=== PATIENT | female | born 1950 | race Caucasian/White ===

== ENCOUNTER → 2023-08-17 06:30 | Day surgery (SDC) | payer MEDICARE, OTHER, SELFPAY | LOC: GI 06:30 | PROVIDERS: ATTENDING PHYSICIAN Internal Medicine | DX: Z12.11 Encounter for screening for malignant neoplasm of colon (principal); K63.89 Other specified diseases of intestine; K57.30 Diverticulosis of large intestine without perforation or abscess without bleeding; Z86.010 Personal history of colon polyps | CPT/HCPCS: 45380; 88305 ==

== ENCOUNTER → 2023-10-26 16:14 | Outpatient (REF) | payer MEDICARE, OTHER, SELFPAY | LOC: RAD 16:14 | PROVIDERS: ATTENDING PHYSICIAN Internal Medicine | DX: M54.31 Sciatica, right side (principal) | CPT/HCPCS: 72100; 73502 ==

== ENCOUNTER → 2024-04-28 09:53 | Outpatient (REF) | payer MEDICARE, OTHER, SELFPAY | LOC: HWWDC 09:53 | PROVIDERS: ATTENDING PHYSICIAN Obstetrics & Gynecology Gynecology; FAMILY PHYSICIAN Internal Medicine | DX: M85.89 Other specified disorders of bone density and structure, multiple sites (principal); Z12.31 Encounter for screening mammogram for malignant neoplasm of breast | CPT/HCPCS: 77080 ==